=== PATIENT | female | born 1965 | race Caucasian/White ===

== ENCOUNTER 2020-11-29 12:00 | Emergency (ER) | payer MEDICARE, OTHER ==
[~2020-11-29 12:00] MED LIST: DILANTIN 100 M100 MG PO; KEPPRA500 MG PO; MACRODANTIN100 MG PO; ZOFRAN 4 MG TAB4 MG PO
[2020-11-29 13:30] LABS: HEMOGLOBIN 14.2 gm/dl (12.3-15.3); RED BLOOD COUNT 4.56 M/UL (4.00-5.10); WHITE BLOOD COUNT 13.7 K/UL (4.5-11.0)
[2020-11-29 14:11] LABS: BUN/CREATININE RATIO 16 (0-10)
[2020-11-29] MEDS ORDERED: DILANTIN 100 M100 MG PO (16:11)
[2020-11-29] MEDS ORDERED: DILANTIN50 MG PO (16:11)
[2020-11-29] MEDS ORDERED: KEPPRA1000 MG PO (16:11)
== END 2020-11-29 17:12 | disposition home or self-care (01) ==
LOC: ER1 12:00
PROVIDERS: Physician Assistant
DX: G40.909 Epilepsy, unspecified, not intractable, without status epilepticus (principal); T42.0X5A Adverse effect of hydantoin derivatives, initial encounter; S10.93XA Contusion of unspecified part of neck, initial encounter; S09.90XA Unspecified injury of head, initial encounter; E87.6 Hypokalemia; W18.09XA Striking against other object with subsequent fall, initial encounter; Z79.899 Other long term (current) drug therapy
CPT/HCPCS: 51701; 70450; 71045; 72125; 80053; 80185; 81001; 85025; 96374; 96375; 99284; J1953; J2060